=== PATIENT | male | born 1955 | race Caucasian/White ===

== ENCOUNTER → 2023-12-31 09:02 | Outpatient (REF) | payer MEDICARE, SELFPAY | LOC: HWRAD 09:02 | PROVIDERS: ATTENDING PHYSICIAN Student in an Organized Health Care Education/Training Program; FAMILY PHYSICIAN Family Medicine | DX: B44.9 Aspergillosis, unspecified (principal) | CPT/HCPCS: 71250 ==

== ENCOUNTER 2024-04-29 07:13 | Inpatient (IN) | payer MEDICARE, SELFPAY ==
[2024-03-24 07:31] VITALS: BMI 29.1
[2024-03-24 08:55] LABS: Hematocrit 35.6 % (39.0-52.0); Hemoglobin 12.2 g/dL (13.0-18.0); Mean Corp Hgb Conc. 34.3 g/dL (33.0-37.0); Mean Corpuscular Hgb 29.4 pg (27.0-31.0); Mean Corpuscular Volume 85.8 fL (80.0-94.0); Mean Platelet Volume 11.3 fL (7.4-10.4); Platelet Count 204 10^3/uL (130-400); Red Blood Cell Count 4.15 10^6/uL (4.70-6.10); Red Cell Dist. Width 13.4 % (11.5-14.5); White Blood Cell Count 6.8 10^3/uL (4.8-10.8)
[2024-03-24 09:26] LABS: ALT (SGPT) 23 U/L (0-50); AST (SGOT) 41 U/L (17-59); Albumin 4.7 g/dl (3.5-5.0); Alkaline Phosphatase 53 U/L (38-126); Blood Urea Nitrogen 22 mg/dl (9-20); Calcium 9.6 mg/dl (8.4-10.2); Carbon Dioxide 24 mmol/L (22-30); Chloride 103 mmol/L (98-107); Estimated Creatinine Clearance 75 ml/min; Glucose 90 mg/dl (70-99); Sodium 137 mmol/L (135-145); Total Bilirubin 0.8 mg/dl (0.2-1.3); eGFR > 60.00
[2024-03-24 12:30] LABS: Glycohemoglobin (HgbA1c) 5.3 % (4.0-5.6)
[2024-04-29] VITALS (30 sets, daily range): BP systolic 97–130; BP diastolic 63–92; PULSE 75; BMI 29.1
[2024-04-29] MEDS: TYLENOL 650 MG PO ×5 (08:24→23:33)
[2024-04-29] MEDS: NORMOSOL-R/PLASMALYTE-A 1000 IV ×2 (08:24→15:46)
[2024-04-29] MEDS: ROXICODONE 5 MG PO (11:58)
--- NOTE | 2024-04-29 14:14 | W.PN.ORTHO ---
Today's Communication / Plan
-
D/c when clinically stable
Assessment
.
Distal Motor Intact: Yes
Dressing:
Clean, dry and intact.
Assessment:
R knee OA s/p R TKA w/ Dr Menchaca 04/29/24
DVT prophylaxis - Eliquis at modified dosing, b/l venous foot pumps
- Eliquis 5 mg PO BID to be resumed POD 3
HTN - monitor BP
PAF/a flutter s/p ablation 12/2020 - monitor on tele
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
- Eliquis as stated above
GERD - resume PPI
Iron def anemia � non-invasive hgb in AM
- Continue PO iron
Dyslipidemia
Aortic root dilatation
Venous varicosities with insufficiency
RUL nodule, likely related to Aspergillosis 07/2023 � resolved on Chest CT 12/2023
Colon polyps
Plan
.
Surgery / Date: R TKA w/ Dr Menchaca 04/29/24
DVT Prophylaxis: Other (Eliquis )
Activity:
Out of bed.
PT/OT
Discharge Plan: Home w/ Outpatient PT
Subjective
.
.:
Patient resting comfortably in PACU.
R knee pain minimal and well tolerated.
Denies any new significant complaints.
Vital Signs and Labs
.
Vital Signs and Labs:
Lab Results
03/24/24 06:44
03/24/24 06:43
Temp Pulse Resp BP Pulse Ox
98.1 F 69 16 124/68 96
04/29/24 07:43 04/29/24 07:43 04/29/24 07:43 04/29/24 07:43 04/29/24 07:43
Physical Exam
-
HEENT: No pallor, cyanosis, or jaundice. Throat clear.
NECK: Supple. No JVD.
RESPIRATORY: Lungs clear to auscultation.
CVS: S1, S2 normal. RRR.�
ABDOMEN: Soft, non-tender. No distension.
EXTREMITIES: Strength equal, no calf pain with palpation/dorsiflexion. Calves soft.
CROWNING INSPECTOR: AOx3. No focal deficits. neonatologist grossly intact
[2024-04-29] MEDS: ANCEF 5 IV (17:53)
[2024-04-29] MEDS: PROTONIX 40 MG PO (17:53)
[2024-04-29] MEDS: FEOSOL 325 MG PO (18:13)
--- NOTE | 2024-04-29 18:30 | PTCARENOTE ---
Pt received from the PACU via bed. Transport was w/o incident. Pt is AAOx3, HR sl irreg., Lungs clear, resp. easy. VSS, pt is afebrile. Pt's Right Knee with Prima seal dressing with scant drainage noted. No current bleeding at present. Pt instructed
on plan of care. Pt verbalized understanding of instructions, call mendoza is within reach.
[2024-04-29] MEDS: DECADRON 4 MG PO (20:27)
[2024-04-29] MEDS: SENOKOT 17.2 MG PO (20:27)
[2024-04-29] MEDS: COLACE 100 MG PO (20:28)
[2024-04-29] MEDS: BACTROBAN 2% OINTMENT 1 APPLIC NASAL (20:28)
[2024-04-29] MEDS: ELIQUIS 2.5 MG PO (20:28)
[2024-04-29] MEDS: VITAMIN D3 (cholecalciferol) 50 MCG PO (20:44)
[2024-04-30] MEDS: ANCEF 5 IV (02:10)
[2024-04-30 02:19] VITALS: BP 116/68
[2024-04-30] MEDS: ROXICODONE 5 MG PO ×2 (02:20→08:18)
[2024-04-30] MEDS: TYLENOL 650 MG PO ×3 (03:16→12:06)
[2024-04-30 07:20] VITALS: BP 118/70
[2024-04-30] MEDS: PROTONIX 40 MG PO (08:18)
[2024-04-30] MEDS: DECADRON 4 MG PO (08:18)
[2024-04-30] MEDS: CRESTOR 5 MG PO (08:18)
[2024-04-30] MEDS: COLACE 100 MG PO (08:19)
[2024-04-30] MEDS: TOPROL XL 25 MG PO (08:19)
[2024-04-30] MEDS: SENOKOT 17.2 MG PO (08:20)
[2024-04-30] MEDS: FEOSOL 325 MG PO (08:20)
[2024-04-30] MEDS: BACTROBAN 2% OINTMENT 1 APPLIC NASAL (08:20)
[2024-04-30] MEDS: VITAMIN D3 (cholecalciferol) 50 MCG PO (08:20)
[2024-04-30] MEDS: ELIQUIS 2.5 MG PO (08:20)
--- NOTE | 2024-04-30 10:39 | CM ---
Addendum entered by Shelia Rojas 04/30/24 14:32:
IMM explained & signed. In chart
Original Note:
Patient seen today, sister in room. IMM explained & signed. In chart
IA completed. CM consult complete.
Patient states he lives alone in a 2 story home with his dog, 3 steps to enter, 12 steps to 2nd floor.
Sister will be staying with patient until Saturday.
States has outpatient therapy set up at [facility]. Has script.
Has a walker at home.
PLOF: Independent, driving
PCP: Bakari Metcalf
Pharmacy: [address], [place]
PLAN: Outpatient therapy at [facility]
Sister to transport.
[2024-04-30 11:20] VITALS: BP 120/74
[2024-04-30 12:02] VITALS: BP 120/54
--- NOTE | 2024-04-30 13:32 | W.PN.ORTHO ---
Today's Communication / Plan
-
D/c today since clinically stable, did well w/ PT and OT.
Assessment
.
Distal Motor Intact: Yes
Dressing:
Scant areas of old incisional bleeding.
Assessment:
R knee OA s/p R TKA w/ Dr Menchaca 04/29/24
DVT prophylaxis - Eliquis at modified dosing, b/l venous foot pumps
- Eliquis 5 mg PO BID to be resumed POD 3
HTN - BPs overall stable
PAF/a flutter s/p ablation 12/2020 - maintaining NSR on tele
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
- Eliquis as stated above
GERD - resume PPI
Iron def anemia � non-invasive hgb 11.8
- Continue PO iron
Dyslipidemia
Aortic root dilatation
Venous varicosities with insufficiency
RUL nodule, likely related to Aspergillosis 07/2023 � resolved on Chest CT 12/2023
Colon polyps
Plan
.
Surgery / Date: R TKA w/ Dr Menchaca 04/29/24
DVT Prophylaxis: Other (Eliquis)
Activity:
Out of bed.
PT/OT
Discharge Plan: Home w/ Outpatient PT
Subjective
.
.:
Patient resting comfortably in his chair.
Right knee pain minimal w/ current pain meds.
Denies any new significant complaints.
Eager for potential d/c today.
Vital Signs and Labs
.
Vital Signs and Labs:
Lab Results
03/24/24 06:44
03/24/24 06:43
Temp Pulse Resp BP Pulse Ox
98.0 F 71 18 120/74 98
04/30/24 11:20 04/30/24 11:20 04/30/24 11:20 04/30/24 11:20 04/30/24 11:20
Non-invasive Hgb result: 11.8
Physical Exam
-
HEENT: No pallor, cyanosis, or jaundice. Throat clear.
NECK: Supple. No JVD.
RESPIRATORY: Lungs clear to auscultation.
CVS: S1, S2 normal. RRR.�
ABDOMEN: Soft, non-tender. No distension.
EXTREMITIES: Strength equal, no calf pain with palpation/dorsiflexion. Calves soft.
SUPERVISOR PIPELINE: AOx3. No focal deficits. bobbin washer grossly intact
--- NOTE | 2024-04-30 13:44 | W.DS.TRANS ---
DC Summary - Promotions Representative
-
Discharge Instructions:
Sleep Apnea Risk Intermediate
Discharge Diagnosis/Procedures R knee OA s/p R TKA w/ Dr Menchaca 04/29/24
Diet Other diet
Additional Diets Diabetic carb controlled x1 week for wound
healing/infection prevention
Activity As tolerated,With Walker
Driving Restrictions Not until seen by your Dr
Bathing Restrictions OK to Shower
Other Services PT
Wound Care Dressing to be removed 1 week post-surgery.
Instructions:
Stand-Alone Forms: Total Hip/Knee Replacement D/C
Changes to Home Medications: Yes
Discharge Medications:
DC Medications w/original date entered in [employer]
cholecalciferol (vitamin D3) 50 mcg (2,000 unit) tablet 2,000 units PO DAILY Supplement 09/18/19
multivitamin with folic acid 400 mcg tablet (Tab-A-Emilee) 1 tab PO BID Supplement 09/18/19
Ahcc 750 mg PO BID Supplement 12/15/20
Curcumin+Coq10 1 tab PO BID Supplement 12/15/20
Krill Oil 1,029 mg PO DAILY Supplement 12/15/20
ascorbic acid (vitamin C) 1,000 mg tablet (Vitamin C) 250 mg PO BID Supplement 12/15/20
cyanocobalamin (vitamin B-12) 5,000 mcg disintegrating tablet 1,000 mcg PO DAILY Supplement 12/15/20
magnesium 200 mg tablet 200 mg PO DAILY Supplement 07/18/23
metoprolol tartrate 25 mg tablet 50 mg PO DAILY PRN palpitation 07/18/23
omeprazole 20 mg tablet,delayed release 20 mg PO DAILY GERD 07/18/23
rosuvastatin 5 mg tablet 5 mg PO DAILY High Cholesterol 07/18/23
famotidine-Ca carb-mag hydrox 10 mg-800 mg-165 mg chewable tablet (Pepcid Complete) 1 tab PO DAILY PRN indigestion 04/22/24
ferrous sulfate mg PO Supplement 04/22/24
metoprolol succinate 25 mg tablet,extended release 24 hr 25 mg PO DAILY Blood Pressure 04/29/24
acetaminophen 500 mg tablet (Tylenol Extra Strength) 1,000 mg (2 x 500 mg) PO Q6H #60 tabs 04/30/24
apixaban 2.5 mg tablet (Eliquis) 2.5 mg PO BID Blood clot prevention/tx #6 tabs 04/30/24
dexamethasone 4 mg tablet 4 mg PO Q12H Anti-inflammatory #7 tabs 04/30/24
docusate sodium 100 mg capsule 100 mg PO BID #30 caps 04/30/24
hydrochlorothiazide 25 mg tablet 25 mg PO DAILY Fluid Retention/Swelling #1 tab 04/30/24
ondansetron HCl 4 mg tablet 4 mg PO Q6H PRN nausea and vomiting #30 tabs 04/30/24
oxycodone 5 mg tablet 5 - 10 mg (1 - 2 x 5 mg) PO Q6H PRN moderate-severe pain #30 tabs 04/30/24
sennosides 8.6 mg tablet (Senna Laxative) 17.2 mg (2 x 8.6 mg) PO BID #30 tabs 04/30/24
Home Medication Changes
acetaminophen 500 mg tablet (Tylenol Extra Strength) 1,000 mg (2 x 500 mg) PO Q6H #60 tabs 04/30/24
apixaban 2.5 mg tablet (Eliquis) 2.5 mg PO BID Blood clot prevention/tx #6 tabs 04/30/24
dexamethasone 4 mg tablet 4 mg PO Q12H Anti-inflammatory #7 tabs 04/30/24
docusate sodium 100 mg capsule 100 mg PO BID #30 caps 04/30/24
ondansetron HCl 4 mg tablet 4 mg PO Q6H PRN nausea and vomiting #30 tabs 04/30/24
oxycodone 5 mg tablet 5 - 10 mg (1 - 2 x 5 mg) PO Q6H PRN moderate-severe pain #30 tabs 04/30/24
sennosides 8.6 mg tablet (Senna Laxative) 17.2 mg (2 x 8.6 mg) PO BID #30 tabs 04/30/24
Pending Results: No
== END 2024-04-30 14:53 | disposition home or self-care (01) | DRG 470 ==
LOC: 2 SOUTH 07:13
PROVIDERS: ADMITTING PHYSICIAN Orthopaedic Surgery; FAMILY PHYSICIAN Family Medicine; REFERRING PHYSICIAN Internal Medicine Cardiovascular Disease
PROC: 0SRC069 Replacement of Right Knee Joint with Oxidized Zirconium on Polyethylene Synthetic Substitute, Cemented, Open Approach (ICD-10-PCS; 2024-04-29)
DX: M17.11 Unilateral primary osteoarthritis, right knee (principal); I48.92 Unspecified atrial flutter; I10 Essential (primary) hypertension; I48.0 Paroxysmal atrial fibrillation; D50.9 Iron deficiency anemia, unspecified
CPT/HCPCS: 36415; 73560; 80053; 83036; 85027; 87070; 97110; 97116; 97162; 97166; 97530; 97535; C1713; C1776

== ENCOUNTER 2024-05-01 06:41 | Outpatient (RCR) | payer MEDICARE, SELFPAY | END 2024-05-01 23:59 | disposition home or self-care (01) | LOC: RPT 06:41 | PROVIDERS: ATTENDING PHYSICIAN Orthopaedic Surgery; FAMILY PHYSICIAN Family Medicine | DX: M17.11 Unilateral primary osteoarthritis, right knee (principal); R26.89 Other abnormalities of gait and mobility; Z47.1 Aftercare following joint replacement surgery | CPT/HCPCS: 97110; 97162 ==

== ENCOUNTER 2024-06-02 06:27 | Outpatient (RCR) | payer MEDICARE, SELFPAY | END 2024-06-02 23:59 | disposition home or self-care (01) | LOC: RPT 06:27 | PROVIDERS: ATTENDING PHYSICIAN Orthopaedic Surgery; FAMILY PHYSICIAN Family Medicine | DX: Z47.1 Aftercare following joint replacement surgery (principal); Z96.651 Presence of right artificial knee joint; M17.11 Unilateral primary osteoarthritis, right knee; R26.89 Other abnormalities of gait and mobility | CPT/HCPCS: 97010; 97110; 97112; 97140; 97530 ==

== ENCOUNTER → 2024-06-18 08:29 | Outpatient (REF) | payer MEDICARE, SELFPAY | LOC: DHSLP 08:29 | PROVIDERS: ATTENDING PHYSICIAN Internal Medicine Cardiovascular Disease | DX: G47.33 Obstructive sleep apnea (adult) (pediatric) (principal) | CPT/HCPCS: 95800 ==

== ENCOUNTER 2024-07-03 07:57 | Outpatient (RCR) | payer MEDICARE, SELFPAY | END 2024-07-03 23:59 | disposition home or self-care (01) | LOC: RPT 07:57 | PROVIDERS: ATTENDING PHYSICIAN Orthopaedic Surgery; FAMILY PHYSICIAN Family Medicine | DX: Z47.1 Aftercare following joint replacement surgery (principal); Z96.651 Presence of right artificial knee joint; M17.11 Unilateral primary osteoarthritis, right knee; R26.89 Other abnormalities of gait and mobility | CPT/HCPCS: 97010; 97110; 97112; 97530 ==

== ENCOUNTER 2024-07-10 07:15 | Outpatient (RCR) | payer MEDICARE, SELFPAY | END 2024-07-14 07:38 | disposition home or self-care (01) | LOC: RPT 07:15 | PROVIDERS: ATTENDING PHYSICIAN Orthopaedic Surgery; FAMILY PHYSICIAN Family Medicine | DX: Z47.1 Aftercare following joint replacement surgery (principal); Z96.651 Presence of right artificial knee joint; M17.11 Unilateral primary osteoarthritis, right knee; R26.2 Difficulty in walking, not elsewhere classified; R26.89 Other abnormalities of gait and mobility | CPT/HCPCS: 97110; 97112 ==

== ENCOUNTER 2025-05-25 06:27 | Day surgery (SDC) | payer MEDICARE, SELFPAY | END 2025-05-25 15:46 | disposition home or self-care (01) | LOC: GI 06:27 | PROVIDERS: ATTENDING PHYSICIAN Internal Medicine Gastroenterology; FAMILY PHYSICIAN Family Medicine | DX: Z12.11 Encounter for screening for malignant neoplasm of colon (principal); K57.30 Diverticulosis of large intestine without perforation or abscess without bleeding; K64.8 Other hemorrhoids; K22.89 Other specified disease of esophagus; K44.9 Diaphragmatic hernia without obstruction or gangrene; Z86.0100 Personal history of colon polyps, unspecified; D12.3 Benign neoplasm of transverse colon; D12.4 Benign neoplasm of descending colon | CPT/HCPCS: 45385; 43239; 88305; 88342 ==

== ENCOUNTER 2025-06-10 06:55 | Day surgery (SDC) | payer MEDICARE, SELFPAY ==
[2025-06-10 08:20] VITALS: BMI 29.9
--- NOTE | 2025-06-10 09:56 | ITS.CL.CARDI ---
[employer]ensed Land [employer]or - Cardioversion
Cardioversion
Procedure Report:
Procedure: RUBEN-guided electrical cardioversion
Pre-operative diagnosis: Persistent atrial fibrillation
Post-operative diagnosis: Persistent atrial fibrillation status post DC cardioversion to sinus rhythm
Anesthesia: MAC
Attending Physician: Ned Campos MD
Procedure Description: The patient was brought to the electrophysiology laboratory in the fasting state. Informed consent was obtained from the patient prior to the start of the procedure. Adherence to anticoagulation was confirmed. Electrodes were
placed on the patient and connected to an external defibrillator. Monitoring of blood pressure, ECG tracings, and pulse oximetry was initiated. The pads were applied to the patient in the anterior and posterior positions. The patient was sedated by
the anesthesiologist. A RUBEN (reported separately) was performed prior to the cardioversion. No left atrial or left atrial appendage thrombus was seen. After the RUBEN probe was removed, a 200 joule biphasic synchronized shock was delivered to the
patient under MAC anesthesia. Sinus rhythm was successfully restored. The patient recovered uneventfully from MAC anesthesia. There were no immediate post-procedure complications. The patient left the lab in good condition. The attending physician
was present throughout the entire procedure.
Impression: Successful RUBEN-guided direct current cardioversion with advent of sinus rhythm after one 200 joule biphasic synchronized shock.
== END 2025-06-10 10:25 | disposition home or self-care (01) ==
LOC: CATH 06:55
PROVIDERS: ATTENDING PHYSICIAN Internal Medicine Cardiovascular Disease; FAMILY PHYSICIAN Family Medicine; OTHER PHYSICIAN Internal Medicine Cardiovascular Disease
DX: I48.19 Other persistent atrial fibrillation (principal); I77.810 Thoracic aortic ectasia; I34.0 Nonrheumatic mitral (valve) insufficiency; Z79.4 Long term (current) use of insulin; Z79.52 Long term (current) use of systemic steroids; Z79.01 Long term (current) use of anticoagulants; I48.92 Unspecified atrial flutter
CPT/HCPCS: 93312; 93320; 93325; 92960; 93005

== ENCOUNTER 2025-07-14 06:02 | Day surgery (SDC) | payer MEDICARE, SELFPAY ==
[2025-06-23 09:01] VITALS: BMI 30.4
[2025-06-23 09:38] LABS: Hematocrit 41.0 % (39.0-52.0); Hemoglobin 14.0 g/dL (13.0-18.0); Mean Corp Hgb Conc. 34.1 g/dL (33.0-37.0); Mean Corpuscular Volume 87.8 fL (80.0-94.0); Nucleated Red Blood Cells % 0 % (-); Platelet Count 220 10^3/uL (130-400); Red Cell Dist. Width 12.8 % (11.5-14.5)
[2025-06-23 09:50] LABS: ALT (SGPT) 37 U/L (0-50); AST (SGOT) 34 U/L (17-59); Albumin 4.8 g/dl (3.5-5.0); Alkaline Phosphatase 54 U/L (38-126); Blood Urea Nitrogen 22 mg/dl (9-20); Calcium 9.7 mg/dl (8.4-10.2); Carbon Dioxide 27 mmol/L (22-30); Chloride 102 mmol/L (98-107); Estimated Creatinine Clearance 91 ml/min; Glucose 99 mg/dl (70-99); Magnesium 2.0 mg/dl (1.6-2.3); Potassium 4.2 mmol/L (3.5-5.1); Sodium 135 mmol/L (135-145); Total Protein 7.4 g/dl (6.3-8.2); eGFR > 60.00
[2025-06-23 09:51] LABS: INR 1.07; PT 14.5 Sec (11.4-14.6)
[2025-07-14] VITALS (13 sets, daily range): BP systolic 83–117; BP diastolic 56–78; BMI 30.3
[2025-07-14 08:53] LABS: ACT-LR - POC 245 Seconds (116-155)
[2025-07-14 09:13] LABS: ACT-LR - POC 297 Seconds (116-155)
[2025-07-14 09:34] LABS: ACT-LR - POC 271 Seconds (116-155)
--- NOTE | 2025-07-14 12:21 | ITS.CL.ABL ---
[employer] Consultant - Ablation
Ablation
Procedure Report:
ELECTROPHYSIOLOGIC STUDY AND POSSIBLE ABLATION
DATE: July 14, 2025
Primary Care Provider: Angelique Thacker MD
INDICATION:
Symptomatic Atrial Fibrillation.
Persistent
HISTORY: See H and P.
Symptomatic AF, poorly controlled with attempted medical therapy.
He has symptomatic persistent atrial fibrillation symptoms have included worsening exertional fatigue over the past nearly 10 months. He tells me he believes he has been persistently in atrial fibrillation since sometime at the end of August 2024.
His rates have been well-controlled. During this timeframe he has experienced worsening symptoms of exertional fatigue and on occasion palpitations.
He recurred with symptomatic atrial fibrillation despite antiarrhythmic drug therapy (propafenone) and cardioversion.
HAS-BLED:
Age
NSAIDS
CHADSVASc: 2
HTN
Age
PRESENTING RHYTHM: AF
HISTORY: See H and P.
Symptomatic AF, poorly controlled with attempted medical therapy.
ANTIARRHYTHMIC DRUG: Propafenone 150 mg 3 times daily plus metoprolol succinate 50 mg daily
ANTICOAGULATION: Apixaban 5 mg twice daily
'TIME-OUT': called and confirmed.
SEDATION/ANESTHESIA: provided via the anesthesia department using general anesthesia.
PROCEDURE:
Ultrasound Guidance with real-time visualization of needle insertion and vessel patency performed by me for femoral venous Vascular Access.
Under real-time US guidance, the needle was advanced with negative pressure into the vein. The needle was seen entering the vessel lumen with a good return of dark red flow, the syringe was removed, non-pulsatile, dark red blood low was noted and
the wire was passed without difficulty, then the needle was removed. US confirmed the wire was in the vein, not going into an artery,
Images were taken and saved for the patient's permanent record. Imaging findings typical femoral venous anatomy. Direct visualization of needle puncture into the femoral vein was observed and recorded.
A decapolar CS catheter was placed within the CS for mapping and pacing.
The intracardiac ultrasound catheter was positioned in the RA for continuous intracardiac ultrasound imaging.
Heparin bolus and infusion to target ACT at 300 -350 seconds was administered. Transseptal puncture was performed. This entailed advancing a sheath with dilator into the superior vena cava and withdrawing both (monitoring intracardiac ultrasound,
fluoroscopy and tip pressure) with the tip oriented toward the atrial septum. The fossa ovalis was engaged (indicated by sudden displacement of the sheath tip as well as tenting of the fossa seen on intracardiac ultrasound).
Transseptal puncture was performed. Left atrial catheter position was confirmed by echocardiographic imaging, pressure monitoring (LA mean pressure 14 mm Hg) and fluoroscopy. The sheath was advanced over the dilator and positioned in the left
atrium.
The Sphere 9 multipolar mapping/ablation Sphere-9 catheter was positioned through the transseptal sheath for high density mapping.
Geometry and voltage mapping was performed using the [employer] mapping system for three-dimensional electroanatomical mapping.
Catheter positioning was guided and confirmed using both I.C.E. and fluoroscopy.
High density electroanatomical three-dimensional mapping demonstrated four PVs: LSPV, LIPV, RSPV, RIPV.
Ablation strategy included PVI as well as mapping for extra PV contributors to atrial fibrillation which would also be targeted if present.
After accomplishing pulmonary venous isolation, mapping identified additional areas likely to be extra PV contributors to atrial fibrillation. These areas demonstrated patchy low voltage as well as complex fractionated electrograms. These areas can
be sites for the formation of rotors which can drive and maintain atrial fibrillation. These areas are known to be significant contributors to initiation and perpetuation of atrial fibrillation.
Additional energy applications/additional ablation sets targeted extra PV contributors to atrial fibrillation.
Targets for additional PFA ablation included:
LA posterior wall targeted with pulsed electric field energy isolating the posterior wall of the left atrium
After ablation of the posterior wall, additional targets were addressed:
LA inferior floor
These areas were ablated using pulsed electric field energy eliminating the extra PV contributors to atrial fibrillation.
Cardioversion resulted in sinus rhythm.
Post ablation mapping finds entrance and exit block at each of the pulmonary veins, the LA posterior wall and at the additional lines at inferior/floor of the LA rendering the sites no longer able to contribute to atrial fibrillation.
Programmed electrical stimulation including burst atrial pacing as well the delivery of decremental extrastimuli down to atrial effective refractory period was performed and no sustained arrhythmias could be induced.
The mapping and ablation catheter was then withdrawn from the left atrium and mapping of the right atrium was performed to assess adequacy of the previously placed CTI line for atrial flutter (12/15/20). Differential pacing finds bidirectional block
at the CTI.
I.C.E. :
Pre-Ablation Post-Ablation
LVEF: 50 % 50 %
WMA: none none
Pericardial effusion: none none
LA Pressure (mmHg) 14 12
COMPLICATIONS:
none
SUMMARY:
- Mapping and ablation to isolate the PVs resulting in electrical isolation of the pulmonary veins
- Additional AF ablation sets X 2 after PVI (LA posterior wall, Inf/floor of the LA posterior wall) resulting in elimination of the targeted extra PV contributors to atrial fibrillation.
- 3-D Electroanatomical Mapping
- Intracardiac Ultrasound
- Ultrasound guidance for vascular access
Post ablation, I discussed today's findings and results with the patient's sister, Jessi.
RECOMMENDATIONS:
- Observe in monitored bed.
- Maintain oral anticoagulation.
- Discontinue propafenone
- Maintain metoprolol succinate 50 mg twice daily
- Office visit with DELL Mendes will be scheduled for 3 to 4 months from today.
Copy to:
Cardioversion resulted in sinus rhythm.
--- NOTE | 2025-07-14 13:15 | W.PN.UPDATE ---
Update Note
Progress Note Update
Pt seen post PFA. Right groin site without ht/bleeding. Post EKG NSR 66 w/PAC, no acute changes. Resume eliquis tonight. Will stop propafenone. Followup with Dr. Gaitan in 3 months as scheduled. Home today if groin site/tele remain stable.
== END 2025-07-14 14:30 | disposition home or self-care (01) ==
LOC: CATH 06:02
PROVIDERS: ATTENDING PHYSICIAN Internal Medicine Cardiovascular Disease; FAMILY PHYSICIAN Family Medicine
DX: I48.92 Unspecified atrial flutter (principal); Z79.01 Long term (current) use of anticoagulants; Z79.899 Other long term (current) drug therapy; E78.5 Hyperlipidemia, unspecified; I10 Essential (primary) hypertension; I48.19 Other persistent atrial fibrillation; E66.9 Obesity, unspecified; Z68.30 Body mass index [BMI] 30.0-30.9, adult; M19.90 Unspecified osteoarthritis, unspecified site; K21.9 Gastro-esophageal reflux disease without esophagitis; R91.1 Solitary pulmonary nodule; I87.2 Venous insufficiency (chronic) (peripheral); I44.0 Atrioventricular block, first degree; I49.1 Atrial premature depolarization; Z87.891 Personal history of nicotine dependence; Z96.651 Presence of right artificial knee joint
CPT/HCPCS: C1894; C1769; C1766; C1730; C1892; C1759; C1733; 36415; 75572; 80053; 83735; 85025; 85347; 85610; 86850; 86900; 86901; 93005; 93656; 93657; Q9967